=== PATIENT | male | born 1930 | race Caucasian/White ===

== ENCOUNTER 2017-10-08 15:28 | Inpatient (IN) | payer MEDICARE, BC ==
--- NOTE | 2017-10-08 15:40 | ED Physician Chart ---
ED Chief Complaint/HPI - Patient Information Date Seen:: 10/08/17 Time Seen:: 15:25 Chief Complaint:: Facial Erythema History of Present Illness:: onset x 5 weeks of right facial redness and swelling; no report of trauma, pain , S/T, neck pain, H/As, Cough, C/P, SOB, Abd. Pain, A/N/V/D/C, fever, chills, or urinary s/s; pt's last tetanus shot: < 5 years; UTD Historian:: Patient, EMS, Family Member Review:: Nurse's Note Reviewed, EMS run form Reviewed ED Review of Systems - Review of Systems General/Constitutional: Fever, No chills, No weight loss, No weakness, No diaphoresis, No edema, No loss of appetite Skin: Skin lesions, Rash, No bruising Head: No headache, No light-headedness Eyes: No loss of vision, No pain, No diplopia ENT: No earache, No nasal drainage, No sore throat, No tinnitus Neck: No neck pain, No swelling, No thyromegaly, No stiffness, No mass noted Cardio Vascular: No chest pain, No palpitations, No PND, No orthopnea, No edema Pulmonary: No SOB, Cough, No sputum, No wheezing GI: No nausea, No vomiting, No diarrhea, No pain, No melena, No hematochezia, No constipation, No hematemesis G/U: No dysuria, No frequency, No hematuria, No nacturia Musculoskeletal: No bone or joint pain, No back pain, No muscle pain Endocrine: No polyuria, No polydipsia Psychiatric: No prior psych history, No depression, No anxiety, No suicidal ideation, No homicidal ideation, No auditory hallucination, No visual hallucination Hematopoietic: No bruising, No lymphadenopathy Allergic/Immuno: No urticaria, No angioedema Neurological: No syncope, No focal symptoms, No weakness, No paresthesia, No headache, No seizure, No dizziness, No confusion, No vertigo ED Past Medical History - Past Medical History Obtainable: Yes Past Medical History: HTN, DM, Dyslipidemia Family History: Diabetes Melitus, HTN Social History: Non Smoker, No Alcohol, No Drug Use, Surgical History: None Psychiatricy History: None Medication: Reviewed Family Medical History - Family Member Mother History Unknown: Yes ED Physical Exam - Physical Examination General/Constitutional: Awake, Well-developed, well-nourished, Alert, No distress, GCS 15, Non-toxic appearing, Ambulatory Head: Atraumatic Eyes: Lids, conjuctiva normal, PERRL, EOMI Skin: No rash, No skin lesions, No ecchymosis, Well hydrated, No lymphadenopathy Other Skin comments:: + Right Maxillary Facial Cellulitis ENMT: External ears, nose nl, TM canals nl, Nasal exam nl, Lips, teeth, gums nl , Oropharynx nl, Tonsils nl Neck: Nontender, Full ROM w/o pain, No JVD, No nuchal rigidity, No bruit, No mass, No stridor Respiratory: Nl effort/Exclusion, Clear to Auscultation, No Wheeze/Rhonchi/Rales Cardio Vascular: RRR, No murmur, gallop, rubs, NL S1 S2, Carotid/Femoral/Distal pulses equal bilaterally GI: No tenderness/rebounding/guarding, No organomegaly, No hernia, Normal BS's, Nondistended, No mass/bruits, No McBurney tenderness : No CVA tenderness Extremities: No tenderness or effusion, Full ROM, normal strength in all extremities, No edema, Normal digits & nails Neuro/Psych: Alert/oriented, DTR's symmetric, Normal sensory exam, Normal motor strength, Judgement/insight normal, Mood normal, Normal gait, No focal deficits Misc: Normal back, No paraspinal tenderness ED Labs/Radiology/EKG Results - Lab Results Comments:: Na+: 133; LA: 2.62 - Radiology Results Comments:: NAD - EKG Interpretations EKG Time:: 16:17 Rate & Rhythm: 86; NSR Comments:: non=specific st-t changes ED Septic Shock - . Is Septic Shock (SBP<90, OR Lactate>4 mmol\L) present?: No ED Reassessment (Disposition) - Reassessment Reassessment Condition:: Improved - Diagnosis Diagnosis:: Cellulitis; Sepsis; Hyponatremia; Facial Cellulitis - Aftercare/Follow up Instructions Aftercare/Follow-Up Instructions:: Counseled pt regarding lab results/diagnosis & need follow up, Counseled pt & family regarding lab results/diagnosis & need follow up - Patient Disposition Discharge/Transfer:: Acute Care w/in this hosp Accepting Physician:: Dr. Clark Time Called:: 1714 Time Responded:: 17:15 Admitted to:: Med/Surg Spoke to:: Dr. clark Admitting Medical Physician:: Dr. Clark Condition at Disposition:: Stable, Improved
[2017-10-08 16:05] LABS: % BASOPHILS 0.7 % (0.0-2.0); % EOSINOPHILS 5.9 % (0.0-5.0); % LYMPHOCYTES 8.1 % (20.0-50.0); % MONOCYTES 5.3 % (2.0-10.0); BASOPHILE ABSOLUTE 0.1 Th/cumm (0-0.2); EOSINOPHILE ABSOLUTE 0.6 Th/cmm (0.1-0.4); HEMATOCRIT 38.1 % (41.0-60); HEMOGLOBIN 12.2 gm/dL (12-16); LYMPHOCYTE ABSOLUTE 0.9 Th/cmm (1.5-3.0); MEAN CELL VOLUME 74.3 fl (80-99); MEAN CORPUSCULAR HEMOGLOBIN 23.8 pg (27.0-31.0); MEAN CORPUSCULAR HGB CONC 32.1 pg (28.0-36.0); MEAN PLATELET VOLUME 6.5 fl; MONOCYTE ABSOLUTE 0.6 Th/cmm (0.3-1.0); NEUTROPHILE ABSOLUTE 8.7 Th/cmm (1.8-8.0); PLATELET COUNT 386 Th/cmm (150-400); RED BLOOD COUNT 5.13 Mil/cmm (3.80-5.80); RED CELL DISTRIBUTION WIDTH 17.3 % (11.5-20.0); WHITE BLOOD COUNT 10.9 Th/cmm (4.8-10.8)
[2017-10-08 16:22] LABS: ALB/GLOB RATIO 1.2 (1.0-1.8); ALBUMIN 3.7 gm/dL (4.2-5.5); ALKALINE PHOSPHATASE 87 U/L (34-104); ANION GAP 10.4 (7.0-16.0); BILIRUBIN,TOTAL 0.4 mg/dL (0.3-1.0); BUN - UREA NITROGEN 7 mg/dL (7-25); CALCIUM SERUM 9.7 mg/dL (8.6-10.3); CHLORIDE 98 mEq/L (98-107); CREATININE - SERUM 0.7 mg/dL (0.7-1.3); CREATININE KINASE 28 U/L (30-223); GLUCOSE 143 mg/dL (70-105); POTASSIUM SERUM 4.4 mEq/L (3.5-5.1); SGOT 16 U/L (13-39); SGPT/ALT 18 U/L (7-52); SODIUM SERUM 133 mEq/L (136-145); TOTAL PROTEIN,SERUM 6.8 gm/dL (6.0-8.3)
[2017-10-08 16:31] LABS: TROP I < 0.01 ng/mL (0.01-0.05)
[2017-10-08 16:36] LABS: INR 0.91 (0.5-1.4); PROTHROMBIN TIME (TEST) 9.5 SECONDS (9.5-11.5)
[2017-10-08] MEDS ORDERED: Hydrocodone/APAP 5mg/325mg Tab PO PRN (18:20)
[2017-10-08] MEDS ORDERED: Albuterol Nebulizer 2.5mg/3mL HHN PRN (18:20)
[2017-10-08] MEDS ORDERED: Ipratropium Neb 0.5 mg/2.5 mL UD HHN PRN (18:20)
[2017-10-08] MEDS ORDERED: Maalox 30 mL Cup PO PRN (18:20)
[2017-10-08] MEDS ORDERED: guaiFENesin 200 MG/10 ML UDC PO PRN (18:21)
[2017-10-08] MEDS ORDERED: Sodium Chloride 0.9% 1,000 ML IV SCH (18:30)
[2017-10-08 20:19] VITALS: BP 117/61
[2017-10-08] MEDS: INSULIN ASPART, RECOMBINANT 100 UNITS/ML SUBQ SCH (22:05)
[2017-10-08 22:47] LABS: URINE MICROSCOPIC INDICATED? YES; URINE SOURCE CLEAN C
[2017-10-08 23:11] LABS: URINE BILIRUBIN NEGATIVE (NEGATIVE); URINE BLOOD TRACE (NEGATIVE); URINE GLUCOSE (UA) NEGATIVE (NEGATIVE); URINE KETONE NEGATIVE (NEGATIVE); URINE LEUKOCYTE ESTERASE LARGE (NEGATIVE); URINE NITRATE POSITIVE (NEGATIVE); URINE PH 8.5 (4.6 - 8.0); URINE PROTEIN 30 mg/dL (NEGATIVE); URINE UROBILINOGEN 0.2 E.U./dL (0.2 - 1.0)
[2017-10-08 23:12] LABS: URINE CLARITY HAZY (CLEAR); URINE COLOR YELLOW
[2017-10-08 23:18] LABS: URINE RBC 0-2 /hpf (0-5)
[2017-10-08 23:20] LABS: URINE BACTERIA MODERATE /hpf (NONE SEEN); URINE EPITHELIAL CELLS MODERATE /lpf (FEW); URINE WBC 25-50 /hpf (0-5)
[2017-10-09] MEDS: INSULIN ASPART, RECOMBINANT 100 UNITS/ML SUBQ SCH ×4 (07:00→20:56)
--- NOTE | 2017-10-09 08:21 | Diagnostic Imaging Report ---
CHEST X-RAY: AP view INDICATION: pain COMPARISON: None FINDINGS: Suboptimal lung volumes are noted. No focal consolidation or effusions. Heart size is within normal limits. Atherosclerosis is noted. Degenerative changes of the spine and shoulders are noted. IMPRESSION: Suboptimal lung volume with no focal consolidation identified. Atherosclerotic vascular disease.
[2017-10-09] MEDS: Sodium Chloride 0.9% 1,000 ML IV SCH (13:36)
--- NOTE | 2017-10-09 15:25 | Internal Medicine Prog Note ---
Internal Medicine Subjective - Subjective Service Date: 10/09/17 ( [facility] [id number]) Internal Medicine Objective - Results Result Diagrams: 10/08/17 15:50 10/08/17 15:50 Recent Labs: Laboratory Last Values WBC 10.9 Th/cmm (4.8-10.8) H 10/08/17 15:50 RBC 5.13 Mil/cmm (3.80-5.80) 10/08/17 15:50 Hgb 12.2 gm/dL (12-16) 10/08/17 15:50 Hct 38.1 % (41.0-60) L 10/08/17 15:50 MCV 74.3 fl (80-99) L 10/08/17 15:50 MCH 23.8 pg (27.0-31.0) L 10/08/17 15:50 MCHC Differential 32.1 pg (28.0-36.0) 10/08/17 15:50 RDW 17.3 % (11.5-20.0) 10/08/17 15:50 Plt Count 386 Th/cmm (150-400) 10/08/17 15:50 MPV 6.5 fl 10/08/17 15:50 Neutrophils % 80.0 % (40.0-80.0) 10/08/17 15:50 Lymphocytes % 8.1 % (20.0-50.0) L 10/08/17 15:50 Monocytes % 5.3 % (2.0-10.0) 10/08/17 15:50 Eosinophils % 5.9 % (0.0-5.0) H 10/08/17 15:50 Basophils % 0.7 % (0.0-2.0) 10/08/17 15:50 PT 9.5 SECONDS (9.5-11.5) 10/08/17 15:50 INR 0.91 (0.5-1.4) 10/08/17 15:50 PTT (Actin FS) 27.7 SECONDS (26.0-38.0) 10/08/17 15:50 Sodium 133 mEq/L (136-145) L 10/08/17 15:50 Potassium 4.4 mEq/L (3.5-5.1) 10/08/17 15:50 Chloride 98 mEq/L (98-107) 10/08/17 15:50 Carbon Dioxide 29.0 mEq/L (21.0-31.0) 10/08/17 15:50 Anion Gap 10.4 (7.0-16.0) 10/08/17 15:50 BUN 7 mg/dL (7-25) 10/08/17 15:50 Creatinine 0.7 mg/dL (0.7-1.3) 10/08/17 15:50 Est GFR ( Amer) TNP 10/08/17 15:50 Est GFR (Non-Af Amer) TNP 10/08/17 15:50 BUN/Creatinine Ratio 10.0 10/08/17 15:50 Glucose 143 mg/dL (70-105) H 10/08/17 15:50 POC Glucose 183 MG/DL (70 - 105) H 10/09/17 11:20 Whole Bld Lactic Acid 0.98 mmol/L (0.60-1.99) 10/08/17 18:03 Calcium 9.7 mg/dL (8.6-10.3) 10/08/17 15:50 Total Bilirubin 0.4 mg/dL (0.3-1.0) 10/08/17 15:50 AST 16 U/L (13-39) 10/08/17 15:50 ALT 18 U/L (7-52) 10/08/17 15:50 Alkaline Phosphatase 87 U/L (34-104) 10/08/17 15:50 Creatine Kinase 28 U/L (30-223) L 10/08/17 15:50 Troponin I < 0.01 ng/mL (0.01-0.05) L 10/08/17 15:50 Total Protein 6.8 gm/dL (6.0-8.3) 10/08/17 15:50 Albumin 3.7 gm/dL (4.2-5.5) L 10/08/17 15:50 Globulin 3.1 gm/dL 10/08/17 15:50 Albumin/Globulin Ratio 1.2 (1.0-1.8) 10/08/17 15:50 Urine Source CLEAN C 10/08/17 22:20 Urine Color YELLOW 10/08/17 22:20 Urine Clarity HAZY (CLEAR) 10/08/17 22:20 Urine pH 8.5 (4.6 - 8.0) 10/08/17 22:20 Ur Specific [place] 1.015 (1.005-1.030) 10/08/17 22:20 Urine Protein 30 mg/dL (NEGATIVE) H 10/08/17 22:20 Urine Glucose (UA) NEGATIVE mg/dL (NEGATIVE) 10/08/17 22:20 Urine Ketones NEGATIVE mg/dL (NEGATIVE) 10/08/17 22:20 Urine Blood TRACE (NEGATIVE) 10/08/17 22:20 Urine Nitrate POSITIVE (NEGATIVE) H 10/08/17 22:20 Urine Bilirubin NEGATIVE (NEGATIVE) 10/08/17 22:20 Urine Urobilinogen 0.2 E.U./dL (0.2 - 1.0) 10/08/17 22:20 Ur Leukocyte Esterase LARGE (NEGATIVE) H 10/08/17 22:20 Urine RBC 0-2 /hpf (0-5) H 10/08/17 22:20 Urine WBC 25-50 /hpf (0-5) H 10/08/17 22:20 Ur Epithelial Cells MODERATE /lpf (FEW) 10/08/17 22:20 Urine Bacteria MODERATE /hpf (NONE SEEN) H 10/08/17 22:20 - Physical Exam Vitals and I&O: Vital Signs Temp 97.4 F 10/09/17 11:39 Pulse 75 10/09/17 11:39 Resp 18 10/09/17 11:39 BP 116/53 10/09/17 11:39 Pulse Ox 96 10/09/17 11:39 Intake & Output 10/08/17 10/09/17 10/09/17 18:59 06:59 18:59 Intake Total 250 200 100 Balance 250 200 100 Weight (lbs) 139 lb 8 oz Intake: Intake, IV Amount 250 200 100 Piperacillin Sodium/ 200 100 Tazobact 4.5 gm In Sodium Chloride 0.9% 100 ml @ 100 mls/hr IV Q8HR [facility] Rx #:[id number] Vancomycin HCl 1 gm In 250 Sodium Chloride 0.9% 250 ml @ 165 mls/hr IV X1 [facility] Rx#:[id number] Active Medications: Current Medications Acetaminophen (Tylenol) 650 mg PO Q4H PRN PRN Reason: Pain Or Fever above 101 Stop: 12/07/17 18:20 Acetaminophen/Hydrocodone Bitart ([place] 5mg/325mg) 1 tab PO Q4H PRN PRN Reason: Pain (Severe) Stop: 12/07/17 18:19 Al Hydrox/Mg Hydrox/Simethicone (Maalox) 30 ml PO Q6H PRN PRN Reason: Dyspepsia Stop: 12/07/17 18:19 Albuterol Sulfate (Albuterol 2.5mg/3ml Neb Ud) 2.5 mg HHN Q2HRT PRN PRN Reason: Shortness of Breath or Wheeze Stop: 12/07/17 18:19 Atorvastatin Calcium (Lipitor) 40 mg PO DAILY [facility] Stop: 12/08/17 08:59 Last Admin: 10/09/17 09:11 Dose: 40 mg Cyanocobalamin (Vitamin B12) 1,000 mcg PO DAILY [facility] Stop: 12/08/17 08:59 Last Admin: 10/09/17 09:10 Dose: 1,000 mcg Guaifenesin (Robitussin) 200 mg PO Q4HR PRN PRN Reason: Cough or Congestion Stop: 12/07/17 18:20 Heparin Sodium (Porcine) (Heparin) 5,000 units SUBQ Q12HR [facility] Stop: 12/07/17 20:59 Last Admin: 10/09/17 09:10 Dose: 5,000 units Piperacillin Sod/Tazobactam (Sod 4.5 gm/ Sodium Chloride) 100 mls @ 100 mls/hr IV Q8HR [facility] Stop: 12/07/17 20:59 Last Infusion: 10/09/17 14:35 Dose: Infused Sodium Chloride (Nacl 0.9%) 1,000 mls @ 70 mls/hr IV .[id number] [facility] Stop: 12/07/17 18:29 Last Admin: 10/09/17 13:36 Dose: 70 mls/hr Insulin Aspart (Novolog) 0 units SUBQ ACHS [facility] PRN Reason: Protocol Stop: 12/07/17 20:59 Last Admin: 10/09/17 11:44 Dose: Not Given Ipratropium [place] (Atrovent Neb 0.5mg/2.5ml) 0.5 mg HHN Q2HRT PRN PRN Reason: Shortness of Breath or Wheeze Stop: 12/07/17 18:19 Lisinopril (Zestril) 5 mg PO QAM [facility] Stop: 12/08/17 08:59 Last Admin: 10/09/17 09:10 Dose: 5 mg Metformin HCl (Glucophage) 500 mg PO BID [facility] Stop: 12/08/17 08:59 Last Admin: 10/09/17 09:11 Dose: 500 mg Miscellaneous (Vancomycin Iv Per Pharmacy) 1 ea MC PRN [facility] Stop: 12/07/17 18:29 Ondansetron HCl (Zofran) 4 mg IV Q8H PRN PRN Reason: Nausea / Vomiting Stop: 12/07/17 18:20 Pneumococcal Polyvalent Vaccine (Pneumovax) 0.5 ml IM .ONCE ONE Stop: 10/12/17 02:15 Zolpidem Tartrate (Ambien) 10 mg PO HS PRN PRN Reason: Insomnia Stop: 12/07/17 18:19 Internal Medicine Assmt/Plan - Assessment Assessment: FACIAL CELLULITIS ACUTE UTI LEUKOCYTOSIS LACTIC ACIDOSIS DM-2 HYPERCHOLESTEREMIA HTN
[2017-10-09] MEDS: Multivitamin w/ Minerals Tab PO SCH (16:27)
[2017-10-09] MEDS ORDERED: INSULIN HUMAN REGULAR 100 UNITS/ML UNIT SUBQ SCH (16:30)
--- NOTE | 2017-10-10 01:59 | History & Physical ---
ADMIT DATE: 10/09/2017 CHIEF COMPLAINT: Facial swelling x 1 month. HISTORY OF PRESENT ILLNESS: This is an 87-year-old male who is from home, who has been having a 5-week history of facial swelling. The patient stated that at about 3 days ago, he noticed that it started to get worse. He states that he was seeing his primary physician and states that it was bruised. The patient was given oral antibiotics of Keflex and Bactrim DS. Due to the patient's facial redness now going away, the patient is now admitted to the med-surg unit. PAST MEDICAL HISTORY: Hypertension, diabetes, and dyslipidemia. SOCIAL HISTORY: The patient lives at home with his . PAST SURGICAL HISTORY: None per the patient. ALLERGIES: TO LOBSTER AND SHELLFISH. FAMILY HISTORY: Noncontributory. MEDICATIONS: Lisinopril, metformin, Centrum, vitamin B12, and atorvastatin. REVIEW OF SYSTEMS: GENERAL: Denies any fevers, any chills. CARDIOVASCULAR: Denies chest pain. RESPIRATORY: Denies shortness of breath. GASTROINTESTINAL: Denies nausea, vomiting, and abdominal pain. GENITOURINARY: Denies increased frequency or dysuria. NEUROLOGIC: No headaches, seizures, or syncope. All other systems are reviewed and are negative. PHYSICAL EXAMINATION: GENERAL: This is an elderly male, awake, alert, in no apparent distress. VITAL SIGNS: Temperature 97.4, heart rate 75, blood pressure 160/53, respirations 18, and O2 of 96%. HEENT: Head; normocephalic and atraumatic. NECK: Supple. No mass. LUNGS: Clear bilaterally. HEART: ____ rhythm. ABDOMEN: Soft and nontender. SKIN: Left facial area is noted with redness. The patient also has few redness on the buttocks area. LABORATORY DATA: WBC 10.9, H and H 12.2 and ____, and platelet of 386. Sodium 132, potassium 4.4, chloride 98, BUN 7, creatinine 0.7. Whole lactic acid of 2.62. Troponin of 0.01. Urinalysis, the patient had a urinalysis done, positive for UTI. The patient had a chest x-ray done, impression is suboptimal lung volume with no focal consolidation identified, atherosclerotic vascular disease. ASSESSMENT: Facial cellulitis, hypertension, type 2 diabetes, hypercholesterolemia, lactic acidosis, hyponatremia, leukocytosis, and acute urinary tract infection. PLAN: The patient to be admitted to the med-surg unit. We will keep the patient on empiric IV antibiotics of Zosyn and vancomycin as well per pharmacy to dose. Monitor the patient's electrolyte levels. We will give IV fluids for hydration. We will do Accu-Chek a.c. and at bedtime. We will continue to monitor this patient. JOB# [id number]
[2017-10-10 05:24] LABS: % BASOPHILS 0.1 % (0.0-2.0); % EOSINOPHILS 10.2 % (0.0-5.0); % LYMPHOCYTES 13.6 % (20.0-50.0); % NEUTROPHILS 69.1 % (40.0-80.0); EOSINOPHILE ABSOLUTE 0.8 Th/cmm (0.1-0.4); HEMOGLOBIN 10.3 gm/dL (12-16); MEAN CELL VOLUME 73.5 fl (80-99); MEAN CORPUSCULAR HEMOGLOBIN 24.6 pg (27.0-31.0); MEAN CORPUSCULAR HGB CONC 33.5 pg (28.0-36.0); MEAN PLATELET VOLUME 6.5 fl; MONOCYTE ABSOLUTE 0.5 Th/cmm (0.3-1.0); NEUTROPHILE ABSOLUTE 5.3 Th/cmm (1.8-8.0); RED BLOOD COUNT 4.19 Mil/cmm (3.80-5.80); RED CELL DISTRIBUTION WIDTH 17.6 % (11.5-20.0)
[2017-10-10 05:27] LABS: HEMATOCRIT 30.8 % (41.0-60); PLATELET COUNT 286 Th/cmm (150-400); WHITE BLOOD COUNT 7.6 Th/cmm (4.8-10.8)
[2017-10-10 05:49] LABS: ANION GAP 9.3 (7.0-16.0); BUN - UREA NITROGEN 9 mg/dL (7-25); CALCIUM SERUM 8.6 mg/dL (8.6-10.3); CARBON DIOXIDE 26.4 mEq/L (21.0-31.0); CHLORIDE 102 mEq/L (98-107); CREATININE - SERUM 0.7 mg/dL (0.7-1.3); GLUCOSE 122 mg/dL (70-105); POTASSIUM SERUM 3.7 mEq/L (3.5-5.1); SODIUM SERUM 134 mEq/L (136-145)
[2017-10-10] MEDS: Sodium Chloride 0.9% 1,000 ML IV SCH (06:43)
[2017-10-10] MEDS: INSULIN ASPART, RECOMBINANT 100 UNITS/ML SUBQ SCH ×4 (06:47→21:06)
[2017-10-10] MEDS: Multivitamin w/ Minerals Tab PO SCH (08:49)
--- NOTE | 2017-10-10 12:35 | Diagnostic Imaging Report ---
Exam: CT examination of facial bones The history facial cellulitis. Total DLP equals 378 CTDI equals 17.4. Findings: Multiple contiguous thin section of the facial bones obtained in axial plane with coronal sagittal reconstruction technique. The study performed without contrast material the study therefore is somewhat limited. The study demonstrates normal appearance of maxilla and mandible. There is no evidence of fracture dislocation. Extensive the dental hardware hardware is noted. There is evidence for opacification of the right maxillary sinus with homogeneous mass extending in anterior portion of the right maxilla sinus with destruction of the bony wall. The mass mass measures 4.4 cm in transverse diameter. There is extension of the mass via superior portion of right maxillary sinus wall into the right inferior orbit Clinical correlation and biopsies recommended. There is evidence for destruction of the posterior lateral wall of the right maxillary sinus. The left maxillary sinus is intact. The visualized sphenoid sinuses and ethmoid sinuses are intact. The optic globes are normal. Right infraorbital soft tissue swelling is noted extending into the right paranasal area. There is evidence for destruction of the right nasal bone IMPRESSION : Destructive changes with erosion of the right the anterior maxillary wall right posterior lateral Large mass extending in the right infraorbital area most likely from the destructive lesion of the right maxillary sinus measuring 4.4 cm diameter. Neoplastic component cannot be excluded. Extension of the previously described mass into the right inferior orbit near proximity to the inferior rectus muscle.
--- NOTE | 2017-10-10 15:08 | Internal Medicine Prog Note ---
Internal Medicine Subjective - Subjective Service Date: 10/10/17 Patient seen and examined:: with staff Patient is:: awake, verbal Per staff patient has:: tolerating meds Internal Medicine Objective - Results Result Diagrams: 10/10/17 05:10 10/10/17 05:10 Recent Labs: Laboratory Last Values WBC 7.6 Th/cmm (4.8-10.8) D 10/10/17 05:10 RBC 4.19 Mil/cmm (3.80-5.80) 10/10/17 05:10 Hgb 10.3 gm/dL (12-16) L 10/10/17 05:10 Hct 30.8 % (41.0-60) L D 10/10/17 05:10 MCV 73.5 fl (80-99) L 10/10/17 05:10 MCH 24.6 pg (27.0-31.0) L 10/10/17 05:10 MCHC Differential 33.5 pg (28.0-36.0) 10/10/17 05:10 RDW 17.6 % (11.5-20.0) 10/10/17 05:10 Plt Count 286 Th/cmm (150-400) D 10/10/17 05:10 MPV 6.5 fl 10/10/17 05:10 Neutrophils % 69.1 % (40.0-80.0) 10/10/17 05:10 Lymphocytes % 13.6 % (20.0-50.0) L 10/10/17 05:10 Monocytes % 7.0 % (2.0-10.0) 10/10/17 05:10 Eosinophils % 10.2 % (0.0-5.0) H 10/10/17 05:10 Basophils % 0.1 % (0.0-2.0) 10/10/17 05:10 ESR 82 mm/hr (0-20) H 10/10/17 05:10 PT 9.5 SECONDS (9.5-11.5) 10/08/17 15:50 INR 0.91 (0.5-1.4) 10/08/17 15:50 PTT (Actin FS) 27.7 SECONDS (26.0-38.0) 10/08/17 15:50 Sodium 134 mEq/L (136-145) L 10/10/17 05:10 Potassium 3.7 mEq/L (3.5-5.1) 10/10/17 05:10 Chloride 102 mEq/L (98-107) 10/10/17 05:10 Carbon Dioxide 26.4 mEq/L (21.0-31.0) 10/10/17 05:10 Anion Gap 9.3 (7.0-16.0) 10/10/17 05:10 BUN 9 mg/dL (7-25) 10/10/17 05:10 Creatinine 0.7 mg/dL (0.7-1.3) 10/10/17 05:10 Est GFR ( Amer) TNP 10/10/17 05:10 Est GFR (Non-Af Amer) TNP 10/10/17 05:10 BUN/Creatinine Ratio 12.9 10/10/17 05:10 Glucose 122 mg/dL (70-105) H 10/10/17 05:10 POC Glucose 167 MG/DL (70 - 105) H 10/10/17 12:02 Whole Bld Lactic Acid 0.98 mmol/L (0.60-1.99) 10/08/17 18:03 Calcium 8.6 mg/dL (8.6-10.3) 10/10/17 05:10 Total Bilirubin 0.4 mg/dL (0.3-1.0) 10/08/17 15:50 AST 16 U/L (13-39) 10/08/17 15:50 ALT 18 U/L (7-52) 10/08/17 15:50 Alkaline Phosphatase 87 U/L (34-104) 10/08/17 15:50 Creatine Kinase 28 U/L (30-223) L 10/08/17 15:50 Troponin I < 0.01 ng/mL (0.01-0.05) L 10/08/17 15:50 B-Natriuretic Peptide 63.7 pg/mL (5.0-100.0) 10/10/17 05:10 Total Protein 6.8 gm/dL (6.0-8.3) 10/08/17 15:50 Albumin 3.7 gm/dL (4.2-5.5) L 10/08/17 15:50 Globulin 3.1 gm/dL 10/08/17 15:50 Albumin/Globulin Ratio 1.2 (1.0-1.8) 10/08/17 15:50 Urine Source CLEAN C 10/08/17 22:20 Urine Color YELLOW 10/08/17 22:20 Urine Clarity HAZY (CLEAR) 10/08/17 22:20 Urine pH 8.5 (4.6 - 8.0) 10/08/17 22:20 Ur Specific [place] 1.015 (1.005-1.030) 10/08/17 22:20 Urine Protein 30 mg/dL (NEGATIVE) H 10/08/17 22:20 Urine Glucose (UA) NEGATIVE mg/dL (NEGATIVE) 10/08/17 22:20 Urine Ketones NEGATIVE mg/dL (NEGATIVE) 10/08/17 22:20 Urine Blood TRACE (NEGATIVE) 10/08/17 22:20 Urine Nitrate POSITIVE (NEGATIVE) H 10/08/17 22:20 Urine Bilirubin NEGATIVE (NEGATIVE) 10/08/17 22:20 Urine Urobilinogen 0.2 E.U./dL (0.2 - 1.0) 10/08/17 22:20 Ur Leukocyte Esterase LARGE (NEGATIVE) H 10/08/17 22:20 Urine RBC 0-2 /hpf (0-5) H 10/08/17 22:20 Urine WBC 25-50 /hpf (0-5) H 10/08/17 22:20 Ur Epithelial Cells MODERATE /lpf (FEW) 10/08/17 22:20 Urine Bacteria MODERATE /hpf (NONE SEEN) H 10/08/17 22:20 - Physical Exam Vitals and I&O: Vital Signs Temp 98.4 F 10/10/17 08:00 Pulse 79 10/10/17 13:42 Resp 18 10/10/17 13:42 BP 125/63 10/10/17 08:49 Pulse Ox 96 10/10/17 13:42 Intake & Output 10/09/17 10/10/17 10/10/17 18:59 06:59 18:59 Intake Total 100 1400 Output Total 1200 Balance 100 200 Weight (lbs) 137 lb Intake: Intake, IV Amount 100 1200 Piperacillin Sodium/ 100 200 Tazobact 4.5 gm In Sodium Chloride 0.9% 100 ml @ 100 mls/hr IV Q8HR [facility] Rx #:[id number] Sodium Chloride 0.9% 1, 1000 000 ml @ 70 mls/hr IV . [id number] [facility] Rx#:[id number] Oral 200 Output: Urine 1200 Active Medications: Current Medications Acetaminophen (Tylenol) 650 mg PO Q4H PRN PRN Reason: Pain Or Fever above 101 Stop: 12/07/17 18:20 Acetaminophen/Hydrocodone Bitart ([place] 5mg/325mg) 1 tab PO Q4H PRN PRN Reason: Pain (Severe) Stop: 12/07/17 18:19 Al Hydrox/Mg Hydrox/Simethicone (Maalox) 30 ml PO Q6H PRN PRN Reason: Dyspepsia Stop: 12/07/17 18:19 Albuterol Sulfate (Albuterol 2.5mg/3ml Neb Ud) 2.5 mg HHN Q2HRT PRN PRN Reason: Shortness of Breath or Wheeze Stop: 12/07/17 18:19 Atorvastatin Calcium (Lipitor) 40 mg PO DAILY [facility] Stop: 12/08/17 08:59 Last Admin: 10/10/17 08:49 Dose: 40 mg Cyanocobalamin (Vitamin B12) 1,000 mcg PO DAILY [facility] Stop: 12/08/17 08:59 Last Admin: 10/10/17 08:49 Dose: 1,000 mcg Guaifenesin (Robitussin) 200 mg PO Q4HR PRN PRN Reason: Cough or Congestion Stop: 12/07/17 18:20 Heparin Sodium (Porcine) (Heparin) 5,000 units SUBQ Q12HR [facility] Stop: 12/07/17 20:59 Last Admin: 10/10/17 08:58 Dose: Not Given Piperacillin Sod/Tazobactam (Sod 4.5 gm/ Sodium Chloride) 100 mls @ 100 mls/hr IV Q8HR [facility] Stop: 12/07/17 20:59 Last Admin: 10/10/17 12:56 Dose: 100 mls/hr Sodium Chloride (Nacl 0.9%) 1,000 mls @ 70 mls/hr IV .[id number] [facility] Stop: 12/07/17 18:29 Last Admin: 10/10/17 06:43 Dose: 70 mls/hr Vancomycin HCl 1 gm/ Dextrose 250 mls @ 165 mls/hr IV Q24HR@0900 [facility] Stop: 12/08/17 15:59 Last Admin: 10/10/17 08:50 Dose: Not Given Vancomycin HCl 1 gm/ Dextrose 250 mls @ 165 mls/hr IV Q24HR@1600 [facility] Stop: 12/09/17 08:59 Insulin Aspart (Novolog) 0 units SUBQ ACHS [facility] PRN Reason: Protocol Stop: 12/07/17 20:59 Last Admin: 10/10/17 12:03 Dose: Not Given Ipratropium [place] (Atrovent Neb 0.5mg/2.5ml) 0.5 mg HHN Q2HRT PRN PRN Reason: Shortness of Breath or Wheeze Stop: 12/07/17 18:19 Lisinopril (Zestril) 5 mg PO QAM [facility] Stop: 12/08/17 08:59 Last Admin: 10/10/17 08:49 Dose: 5 mg Metformin HCl (Glucophage) 500 mg PO BID [facility] Stop: 12/08/17 08:59 Last Admin: 10/10/17 08:49 Dose: 500 mg Miscellaneous (Vancomycin Iv Per Pharmacy) 1 ea MC PRN [facility] Stop: 12/07/17 18:29 Mupirocin (Bactroban Oint) 1 appl NS BID [facility] Stop: 10/15/17 09:01 Ondansetron HCl (Zofran) 4 mg IV Q8H PRN PRN Reason: Nausea / Vomiting Stop: 12/07/17 18:20 Pneumococcal Polyvalent Vaccine (Pneumovax) 0.5 ml IM .ONCE ONE Stop: 10/12/17 02:15 Zolpidem Tartrate (Ambien) 10 mg PO HS PRN PRN Reason: Insomnia Stop: 12/07/17 18:19 General: alert HEENT: NC/AT, PERRLA Neck: Supple Lungs: CTAB Cardiovascular: RRR, Normal S1, Normal S2 Abdomen: soft, non-tender Extremities: excoriation Internal Medicine Assmt/Plan - Assessment Assessment: FACIAL CELLULITIS large mass right infraorbital area ACUTE UTI LEUKOCYTOSIS LACTIC ACIDOSIS DM-2 HYPERCHOLESTEREMIA HTN - Plan Plan: sample case porter to arrange placement to [facility] for ENT continue ivabx follow up labs in am continue current plan of care
[2017-10-11 06:34] LABS: % BASOPHILS 0.9 % (0.0-2.0); % EOSINOPHILS 7.1 % (0.0-5.0); % LYMPHOCYTES 9.9 % (20.0-50.0); % MONOCYTES 7.6 % (2.0-10.0); % NEUTROPHILS 74.5 % (40.0-80.0); BASOPHILE ABSOLUTE 0.1 Th/cumm (0-0.2); EOSINOPHILE ABSOLUTE 0.6 Th/cmm (0.1-0.4); HEMATOCRIT 32.2 % (41.0-60); HEMOGLOBIN 10.6 gm/dL (12-16); LYMPHOCYTE ABSOLUTE 0.8 Th/cmm (1.5-3.0); MEAN CELL VOLUME 74.1 fl (80-99); MEAN CORPUSCULAR HEMOGLOBIN 24.5 pg (27.0-31.0); MEAN CORPUSCULAR HGB CONC 33.1 pg (28.0-36.0); MEAN PLATELET VOLUME 6.3 fl; MONOCYTE ABSOLUTE 0.6 Th/cmm (0.3-1.0); NEUTROPHILE ABSOLUTE 6.2 Th/cmm (1.8-8.0); PLATELET COUNT 301 Th/cmm (150-400); RED BLOOD COUNT 4.35 Mil/cmm (3.80-5.80); RED CELL DISTRIBUTION WIDTH 17.8 % (11.5-20.0); WHITE BLOOD COUNT 8.3 Th/cmm (4.8-10.8)
[2017-10-11] MEDS: INSULIN ASPART, RECOMBINANT 100 UNITS/ML SUBQ SCH ×3 (06:37→17:34)
[2017-10-11 06:51] LABS: ANION GAP 12.1 (7.0-16.0); BUN - UREA NITROGEN 7 mg/dL (7-25); CALCIUM SERUM 8.8 mg/dL (8.6-10.3); CARBON DIOXIDE 23.6 mEq/L (21.0-31.0); CHLORIDE 105 mEq/L (98-107); CREATININE - SERUM 0.6 mg/dL (0.7-1.3); GLUCOSE 128 mg/dL (70-105); POTASSIUM SERUM 3.7 mEq/L (3.5-5.1); SODIUM SERUM 137 mEq/L (136-145)
[2017-10-11] MEDS: Multivitamin w/ Minerals Tab PO SCH (08:40)
[2017-10-11] MEDS ORDERED: Probiotic Screen MC PRN (12:15)
--- NOTE | 2017-10-11 13:02 | Internal Medicine Prog Note ---
Internal Medicine Subjective - Subjective Service Date: 10/11/17 Patient seen and examined:: with staff Patient is:: awake, verbal Per staff patient has:: tolerating meds Internal Medicine Objective - Results Result Diagrams: 10/11/17 06:03 10/11/17 06:03 Recent Labs: Laboratory Last Values WBC 8.3 Th/cmm (4.8-10.8) 10/11/17 06:03 RBC 4.35 Mil/cmm (3.80-5.80) 10/11/17 06:03 Hgb 10.6 gm/dL (12-16) L 10/11/17 06:03 Hct 32.2 % (41.0-60) L 10/11/17 06:03 MCV 74.1 fl (80-99) L 10/11/17 06:03 MCH 24.5 pg (27.0-31.0) L 10/11/17 06:03 MCHC Differential 33.1 pg (28.0-36.0) 10/11/17 06:03 RDW 17.8 % (11.5-20.0) 10/11/17 06:03 Plt Count 301 Th/cmm (150-400) 10/11/17 06:03 MPV 6.3 fl 10/11/17 06:03 Neutrophils % 74.5 % (40.0-80.0) 10/11/17 06:03 Lymphocytes % 9.9 % (20.0-50.0) L 10/11/17 06:03 Monocytes % 7.6 % (2.0-10.0) 10/11/17 06:03 Eosinophils % 7.1 % (0.0-5.0) H 10/11/17 06:03 Basophils % 0.9 % (0.0-2.0) 10/11/17 06:03 ESR 82 mm/hr (0-20) H 10/10/17 05:10 PT 9.5 SECONDS (9.5-11.5) 10/08/17 15:50 INR 0.91 (0.5-1.4) 10/08/17 15:50 PTT (Actin FS) 27.7 SECONDS (26.0-38.0) 10/08/17 15:50 Sodium 137 mEq/L (136-145) 10/11/17 06:03 Potassium 3.7 mEq/L (3.5-5.1) 10/11/17 06:03 Chloride 105 mEq/L (98-107) 10/11/17 06:03 Carbon Dioxide 23.6 mEq/L (21.0-31.0) 10/11/17 06:03 Anion Gap 12.1 (7.0-16.0) 10/11/17 06:03 BUN 7 mg/dL (7-25) 10/11/17 06:03 Creatinine 0.6 mg/dL (0.7-1.3) L 10/11/17 06:03 Est GFR ( Amer) TNP 10/11/17 06:03 Est GFR (Non-Af Amer) TNP 10/11/17 06:03 BUN/Creatinine Ratio 11.7 10/11/17 06:03 Glucose 128 mg/dL (70-105) H 10/11/17 06:03 POC Glucose 121 MG/DL (70 - 105) H 10/11/17 06:35 Whole Bld Lactic Acid 0.98 mmol/L (0.60-1.99) 10/08/17 18:03 Calcium 8.8 mg/dL (8.6-10.3) 10/11/17 06:03 Total Bilirubin 0.4 mg/dL (0.3-1.0) 10/08/17 15:50 AST 16 U/L (13-39) 10/08/17 15:50 ALT 18 U/L (7-52) 10/08/17 15:50 Alkaline Phosphatase 87 U/L (34-104) 10/08/17 15:50 Creatine Kinase 28 U/L (30-223) L 10/08/17 15:50 Troponin I < 0.01 ng/mL (0.01-0.05) L 10/08/17 15:50 B-Natriuretic Peptide 63.7 pg/mL (5.0-100.0) 10/10/17 05:10 Total Protein 6.8 gm/dL (6.0-8.3) 10/08/17 15:50 Albumin 3.7 gm/dL (4.2-5.5) L 10/08/17 15:50 Globulin 3.1 gm/dL 10/08/17 15:50 Albumin/Globulin Ratio 1.2 (1.0-1.8) 10/08/17 15:50 Urine Source CLEAN C 10/08/17 22:20 Urine Color YELLOW 10/08/17 22:20 Urine Clarity HAZY (CLEAR) 10/08/17 22:20 Urine pH 8.5 (4.6 - 8.0) 10/08/17 22:20 Ur Specific [place] 1.015 (1.005-1.030) 10/08/17 22:20 Urine Protein 30 mg/dL (NEGATIVE) H 10/08/17 22:20 Urine Glucose (UA) NEGATIVE mg/dL (NEGATIVE) 10/08/17 22:20 Urine Ketones NEGATIVE mg/dL (NEGATIVE) 10/08/17 22:20 Urine Blood TRACE (NEGATIVE) 10/08/17 22:20 Urine Nitrate POSITIVE (NEGATIVE) H 10/08/17 22:20 Urine Bilirubin NEGATIVE (NEGATIVE) 10/08/17 22:20 Urine Urobilinogen 0.2 E.U./dL (0.2 - 1.0) 10/08/17 22:20 Ur Leukocyte Esterase LARGE (NEGATIVE) H 10/08/17 22:20 Urine RBC 0-2 /hpf (0-5) H 10/08/17 22:20 Urine WBC 25-50 /hpf (0-5) H 10/08/17 22:20 Ur Epithelial Cells MODERATE /lpf (FEW) 10/08/17 22:20 Urine Bacteria MODERATE /hpf (NONE SEEN) H 10/08/17 22:20 - Physical Exam Vitals and I&O: Vital Signs Temp 97.4 F 10/11/17 11:33 Pulse 73 10/11/17 11:33 Resp 17 10/11/17 11:33 BP 134/65 10/11/17 11:33 Pulse Ox 94 10/11/17 11:33 Intake & Output 10/10/17 10/11/17 10/11/17 18:59 06:59 18:59 Intake Total 350 300 Output Total 900 Balance 350 -600 Weight (lbs) 137 lb 137 lb Intake: Intake, IV Amount 350 200 Piperacillin Sodium/ 100 200 Tazobact 4.5 gm In Sodium Chloride 0.9% 100 ml @ 100 mls/hr IV Q8HR [facility] Rx #:[id number] Vancomycin HCl 1 gm In 250 Dextrose 5% 250 ml @ 165 mls/hr IV Q24HR@1600 [facility] Rx#:[id number] Oral 100 Output: Urine 900 Other: # Voids 1,000 Active Medications: Current Medications Acetaminophen (Tylenol) 650 mg PO Q4H PRN PRN Reason: Pain Or Fever above 101 Stop: 12/07/17 18:20 Acetaminophen/Hydrocodone Bitart ([place] 5mg/325mg) 1 tab PO Q4H PRN PRN Reason: Pain (Severe) Stop: 12/07/17 18:19 Al Hydrox/Mg Hydrox/Simethicone (Maalox) 30 ml PO Q6H PRN PRN Reason: Dyspepsia Stop: 12/07/17 18:19 Albuterol Sulfate (Albuterol 2.5mg/3ml Neb Ud) 2.5 mg HHN Q2HRT PRN PRN Reason: Shortness of Breath or Wheeze Stop: 12/07/17 18:19 Atorvastatin Calcium (Lipitor) 40 mg PO DAILY [facility] Stop: 12/08/17 08:59 Last Admin: 10/11/17 08:39 Dose: 40 mg Cyanocobalamin (Vitamin B12) 1,000 mcg PO DAILY [facility] Stop: 12/08/17 08:59 Last Admin: 10/11/17 08:39 Dose: 1,000 mcg Guaifenesin (Robitussin) 200 mg PO Q4HR PRN PRN Reason: Cough or Congestion Stop: 12/07/17 18:20 Heparin Sodium (Porcine) (Heparin) 5,000 units SUBQ Q12HR [facility] Stop: 12/07/17 20:59 Last Admin: 10/11/17 08:41 Dose: Not Given Piperacillin Sod/Tazobactam (Sod 4.5 gm/ Sodium Chloride) 100 mls @ 100 mls/hr IV Q8HR [facility] Stop: 12/07/17 20:59 Last Admin: 10/11/17 12:09 Dose: 100 mls/hr Sodium Chloride (Nacl 0.9%) 1,000 mls @ 70 mls/hr IV .[id number] [facility] Stop: 12/07/17 18:29 Last Admin: 10/10/17 06:43 Dose: 70 mls/hr Vancomycin HCl 1 gm/ Dextrose 250 mls @ 165 mls/hr IV Q24HR@1600 [facility] Stop: 12/09/17 08:59 Last Infusion: 10/10/17 17:30 Dose: Infused Insulin Aspart (Novolog) 0 units SUBQ ACHS [facility] PRN Reason: Protocol Stop: 12/07/17 20:59 Last Admin: 10/11/17 12:11 Dose: Not Given Ipratropium [place] (Atrovent Neb 0.5mg/2.5ml) 0.5 mg HHN Q2HRT PRN PRN Reason: Shortness of Breath or Wheeze Stop: 12/07/17 18:19 Lactobacillus Rhamnosus (Culturelle 15b) 1 each PO DAILY [facility] Stop: 12/11/17 08:59 Lisinopril (Zestril) 5 mg PO QAM [facility] Stop: 12/08/17 08:59 Last Admin: 10/11/17 08:41 Dose: 5 mg Metformin HCl (Glucophage) 500 mg PO BID [facility] Stop: 12/08/17 08:59 Last Admin: 10/11/17 08:40 Dose: 500 mg Miscellaneous (Vancomycin Iv Per Pharmacy) 1 ea MC PRN [facility] Stop: 12/07/17 18:29 Miscellaneous (Probiotic Screen) 1 ea PRN PRN PRN Reason: PROTOCOL Stop: 12/10/17 12:14 Mupirocin (Bactroban Oint) 1 appl NS BID [facility] Stop: 10/15/17 09:01 Last Admin: 10/11/17 08:42 Dose: 1 appl Ondansetron HCl (Zofran) 4 mg IV Q8H PRN PRN Reason: Nausea / Vomiting Stop: 12/07/17 18:20 Pneumococcal Polyvalent Vaccine (Pneumovax) 0.5 ml IM .ONCE ONE Stop: 10/12/17 02:15 Zolpidem Tartrate (Ambien) 10 mg PO HS PRN PRN Reason: Insomnia Stop: 12/07/17 18:19 General: alert HEENT: NC/AT, PERRLA Neck: Supple Lungs: CTAB Cardiovascular: RRR, Normal S1, Normal S2 Abdomen: soft, non-tender Extremities: excoriation Internal Medicine Assmt/Plan - Assessment Assessment: FACIAL CELLULITIS large mass right infraorbital area ACUTE UTI LEUKOCYTOSIS LACTIC ACIDOSIS DM-2 HYPERCHOLESTEREMIA HTN - Plan Plan: awaiting for bed at [facility] for ENT continue ivabx follow up labs in am continue current plan of care
[2017-10-11] MEDS ORDERED: Vancomycin HCl 1.5 GM in Sodium Chloride 0.9% 500 ML IV SCH (16:00)
[2017-10-11] MEDS: Sodium Chloride 0.9% 1,000 ML IV SCH (21:21)
[2017-10-12] MEDS ORDERED: Pneumococcal Vaccine 0.5 mL Vial IM ONE (02:14)
[2017-10-12 05:08] LABS: % BASOPHILS 0.6 % (0.0-2.0); % EOSINOPHILS 8.5 % (0.0-5.0); % LYMPHOCYTES 10.1 % (20.0-50.0); % MONOCYTES 7.4 % (2.0-10.0); % NEUTROPHILS 73.4 % (40.0-80.0); EOSINOPHILE ABSOLUTE 0.7 Th/cmm (0.1-0.4); HEMATOCRIT 30.9 % (41.0-60); HEMOGLOBIN 10.3 gm/dL (12-16); LYMPHOCYTE ABSOLUTE 0.8 Th/cmm (1.5-3.0); MEAN CELL VOLUME 74.4 fl (80-99); MEAN CORPUSCULAR HEMOGLOBIN 24.7 pg (27.0-31.0); MEAN CORPUSCULAR HGB CONC 33.2 pg (28.0-36.0); MEAN PLATELET VOLUME 6.2 fl; MONOCYTE ABSOLUTE 0.6 Th/cmm (0.3-1.0); NEUTROPHILE ABSOLUTE 5.7 Th/cmm (1.8-8.0); PLATELET COUNT 300 Th/cmm (150-400); RED BLOOD COUNT 4.15 Mil/cmm (3.80-5.80); RED CELL DISTRIBUTION WIDTH 17.8 % (11.5-20.0); WHITE BLOOD COUNT 7.8 Th/cmm (4.8-10.8)
[2017-10-12 05:32] LABS: INR 1.09 (0.5-1.4); PROTHROMBIN TIME (TEST) 11.4 SECONDS (9.5-11.5)
[2017-10-12 05:35] LABS: ALB/GLOB RATIO 1.2 (1.0-1.8); ALKALINE PHOSPHATASE 49 U/L (34-104); ANION GAP 9.3 (7.0-16.0); BILIRUBIN,DIRECT 0.11 mg/dL (0.0-0.2); BILIRUBIN,TOTAL 0.5 mg/dL (0.3-1.0); BUN - UREA NITROGEN 6 mg/dL (7-25); CALCIUM SERUM 8.7 mg/dL (8.6-10.3); CARBON DIOXIDE 26.3 mEq/L (21.0-31.0); CHLORIDE 104 mEq/L (98-107); GLUCOSE 135 mg/dL (70-105); POTASSIUM SERUM 3.6 mEq/L (3.5-5.1); SGOT 13 U/L (13-39); SGPT/ALT 13 U/L (7-52); SODIUM SERUM 136 mEq/L (136-145); TOTAL PROTEIN,SERUM 5.5 gm/dL (6.0-8.3)
[2017-10-12] MEDS: INSULIN ASPART, RECOMBINANT 100 UNITS/ML SUBQ SCH ×2 (05:45→17:25)
[2017-10-12] MEDS: Multivitamin w/ Minerals Tab PO SCH (09:54)
[2017-10-12] MEDS: Lactobacillus Rhamnosus GG 15 Billion CFU CAP.SPRINK PO SCH (09:54)
--- NOTE | 2017-10-12 09:56 | Consultation ---
DATE OF CONSULTATION: 10/11/2017 HEMATOLOGY ONCOLOGY CONSULTATION REFERRING PHYSICIAN: Dr. Clark. REASON FOR CONSULTATION: Maxillary tumor. HISTORY OF PRESENT ILLNESS: The patient is an 87-year-old male who came from home because of pain and swelling in the right base. He stated that this has been going on for the past 3 months. He denied bleeding from the nose or visual problems. A CT scan of the face and orbit was done, which showed opacification of the right maxillary sinus with destruction of the wall of the maxillary sinus. PAST MEDICAL HISTORY: Hypertension, diabetes, dyslipidemia, history of Guillain Mantoloking, and weakness of both lower extremities. PAST SURGICAL HISTORY: None. SOCIAL HISTORY: Lives with his . MEDICATIONS: Reviewed. REVIEW OF SYSTEMS: Weakness in both lower extremities, rigidity and contracture of the left upper extremity for the past 1 year. PHYSICAL EXAMINATION: GENERAL: The patient is awake, not in distress, talking. VITAL SIGNS: Stable. HEENT: There is asymmetry of the face with prominence of the right maxillary area with a palpable mass in this area that is pushing and displacing the right orbit. Extraocular muscles are intact. No oral lesions. NECK: No lymphadenopathy. CHEST: Good air entry. ABDOMEN: Soft. Condom cath, the urine is clear. EXTREMITIES: Atrophic and rigidity in both lower extremities and left upper extremity. NERVOUS SYSTEM: Weakness of both lower extremities and left upper extremity. LABORATORY DATA: White count 8.3, hemoglobin 10.6, platelets 301, and MCV 74.1. Chemistry: Creatinine 0.6. No liver functions available. 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 The CT scan was reviewed on monitor, which revealed complete opacification of the right maxilla with tumor destroying the anterior wall of the right maxilla and also penetrating the lower wall of the right orbit causing displacement of the right orbit. The left maxilla is unremarkable, this could be either lymphoma or head and neck cancer. 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 I will obtain liver functions and coagulation panel to complement the workup. Also, iron studies to evaluate for the microcytic anemia. Further management will be addressed based on pathology results. Thank you Dr. Clark for the opportunity to participate in the care of this interesting case for you. JOB# [id number]
[2017-10-12] MEDS ORDERED: Vancomycin HCl 1.5 GM in Sodium Chloride 0.9% 500 ML IV SCH (12:00)
[2017-10-12] MEDS: Sodium Chloride 0.9% 1,000 ML IV SCH (13:17)
--- NOTE | 2017-10-12 14:33 | Internal Medicine Prog Note ---
Internal Medicine Subjective - Subjective Service Date: 10/12/17 Patient seen and examined:: with staff Patient is:: awake, verbal Per staff patient has:: tolerating meds Internal Medicine Objective - Results Result Diagrams: 10/12/17 05:00 10/12/17 05:00 Recent Labs: Laboratory Last Values WBC 7.8 Th/cmm (4.8-10.8) 10/12/17 05:00 RBC 4.15 Mil/cmm (3.80-5.80) 10/12/17 05:00 Hgb 10.3 gm/dL (12-16) L 10/12/17 05:00 Hct 30.9 % (41.0-60) L 10/12/17 05:00 MCV 74.4 fl (80-99) L 10/12/17 05:00 MCH 24.7 pg (27.0-31.0) L 10/12/17 05:00 MCHC Differential 33.2 pg (28.0-36.0) 10/12/17 05:00 RDW 17.8 % (11.5-20.0) 10/12/17 05:00 Plt Count 300 Th/cmm (150-400) 10/12/17 05:00 MPV 6.2 fl 10/12/17 05:00 Neutrophils % 73.4 % (40.0-80.0) 10/12/17 05:00 Lymphocytes % 10.1 % (20.0-50.0) L 10/12/17 05:00 Monocytes % 7.4 % (2.0-10.0) 10/12/17 05:00 Eosinophils % 8.5 % (0.0-5.0) H 10/12/17 05:00 Basophils % 0.6 % (0.0-2.0) 10/12/17 05:00 ESR 82 mm/hr (0-20) H 10/10/17 05:10 PT 11.4 SECONDS (9.5-11.5) 10/12/17 05:00 INR 1.09 (0.5-1.4) 10/12/17 05:00 PTT (Actin FS) 27.0 SECONDS (26.0-38.0) 10/12/17 05:00 Sodium 136 mEq/L (136-145) 10/12/17 05:00 Potassium 3.6 mEq/L (3.5-5.1) 10/12/17 05:00 Chloride 104 mEq/L (98-107) 10/12/17 05:00 Carbon Dioxide 26.3 mEq/L (21.0-31.0) 10/12/17 05:00 Anion Gap 9.3 (7.0-16.0) 10/12/17 05:00 BUN 6 mg/dL (7-25) L 10/12/17 05:00 Creatinine 1.0 mg/dL (0.7-1.3) 10/12/17 05:00 Est GFR ( Amer) TNP 10/12/17 05:00 Est GFR (Non-Af Amer) TNP 10/12/17 05:00 BUN/Creatinine Ratio 6.0 10/12/17 05:00 Glucose 135 mg/dL (70-105) H 10/12/17 05:00 POC Glucose 134 MG/DL (70 - 105) H 10/12/17 05:03 Whole Bld Lactic Acid 0.98 mmol/L (0.60-1.99) 10/08/17 18:03 Calcium 8.7 mg/dL (8.6-10.3) 10/12/17 05:00 Total Bilirubin 0.5 mg/dL (0.3-1.0) 10/12/17 05:00 Direct Bilirubin 0.11 mg/dL (0.0-0.2) 10/12/17 05:00 AST 13 U/L (13-39) 10/12/17 05:00 ALT 13 U/L (7-52) 10/12/17 05:00 Alkaline Phosphatase 49 U/L (34-104) 10/12/17 05:00 Creatine Kinase 28 U/L (30-223) L 10/08/17 15:50 Troponin I < 0.01 ng/mL (0.01-0.05) L 10/08/17 15:50 B-Natriuretic Peptide 63.7 pg/mL (5.0-100.0) 10/10/17 05:10 Total Protein 5.5 gm/dL (6.0-8.3) L 10/12/17 05:00 Albumin 3.0 gm/dL (4.2-5.5) L 10/12/17 05:00 Globulin 2.5 gm/dL 10/12/17 05:00 Albumin/Globulin Ratio 1.2 (1.0-1.8) 10/12/17 05:00 Urine Source CLEAN C 10/08/17 22:20 Urine Color YELLOW 10/08/17 22:20 Urine Clarity HAZY (CLEAR) 10/08/17 22:20 Urine pH 8.5 (4.6 - 8.0) 10/08/17 22:20 Ur Specific [place] 1.015 (1.005-1.030) 10/08/17 22:20 Urine Protein 30 mg/dL (NEGATIVE) H 10/08/17 22:20 Urine Glucose (UA) NEGATIVE mg/dL (NEGATIVE) 10/08/17 22:20 Urine Ketones NEGATIVE mg/dL (NEGATIVE) 10/08/17 22:20 Urine Blood TRACE (NEGATIVE) 10/08/17 22:20 Urine Nitrate POSITIVE (NEGATIVE) H 10/08/17 22:20 Urine Bilirubin NEGATIVE (NEGATIVE) 10/08/17 22:20 Urine Urobilinogen 0.2 E.U./dL (0.2 - 1.0) 10/08/17 22:20 Ur Leukocyte Esterase LARGE (NEGATIVE) H 10/08/17 22:20 Urine RBC 0-2 /hpf (0-5) H 10/08/17 22:20 Urine WBC 25-50 /hpf (0-5) H 10/08/17 22:20 Ur Epithelial Cells MODERATE /lpf (FEW) 10/08/17 22:20 Urine Bacteria MODERATE /hpf (NONE SEEN) H 10/08/17 22:20 Vancomycin Trough 6.8 ug/mL (10-20) L 10/11/17 14:57 - Physical Exam Vitals and I&O: Vital Signs Temp 98.4 F 10/12/17 11:11 Pulse 73 10/12/17 11:11 Resp 19 10/12/17 11:11 BP 123/60 10/12/17 11:11 Pulse Ox 97 10/12/17 11:11 Intake & Output 10/11/17 10/12/17 10/12/17 18:59 06:59 18:59 Intake Total 1627 175 3260 Output Total 750 Balance 311 358 8579 Weight (lbs) 137 lb 3.2 oz Intake: Intake, IV Amount 549 524 8965 Piperacillin Sodium/ 100 200 Tazobact 4.5 gm In Sodium Chloride 0.9% 100 ml @ 100 mls/hr IV Q8HR [facility] Rx #:[id number] Sodium Chloride 0.9% 1, 1000 000 ml @ 70 mls/hr IV . [id number] [facility] Rx#:[id number] Oral 1100 Output: Urine 750 Other: # Bowel Movements 2 Stool Characteristics Soft Formed Active Medications: Current Medications Acetaminophen (Tylenol) 650 mg PO Q4H PRN PRN Reason: Pain Or Fever above 101 Stop: 12/07/17 18:20 Acetaminophen/Hydrocodone Bitart ([place] 5mg/325mg) 1 tab PO Q4H PRN PRN Reason: Pain (Severe) Stop: 12/07/17 18:19 Al Hydrox/Mg Hydrox/Simethicone (Maalox) 30 ml PO Q6H PRN PRN Reason: Dyspepsia Stop: 12/07/17 18:19 Albuterol Sulfate (Albuterol 2.5mg/3ml Neb Ud) 2.5 mg HHN Q2HRT PRN PRN Reason: Shortness of Breath or Wheeze Stop: 12/07/17 18:19 Atorvastatin Calcium (Lipitor) 40 mg PO DAILY [facility] Stop: 12/08/17 08:59 Last Admin: 10/12/17 09:54 Dose: 40 mg Cyanocobalamin (Vitamin B12) 1,000 mcg PO DAILY [facility] Stop: 12/08/17 08:59 Last Admin: 10/12/17 09:54 Dose: 1,000 mcg Guaifenesin (Robitussin) 200 mg PO Q4HR PRN PRN Reason: Cough or Congestion Stop: 12/07/17 18:20 Heparin Sodium (Porcine) (Heparin) 5,000 units SUBQ Q12HR [facility] Stop: 12/07/17 20:59 Last Admin: 10/12/17 09:54 Dose: Not Given Piperacillin Sod/Tazobactam (Sod 4.5 gm/ Sodium Chloride) 100 mls @ 100 mls/hr IV Q8HR [facility] Stop: 12/07/17 20:59 Last Infusion: 10/12/17 05:45 Dose: Infused Sodium Chloride (Nacl 0.9%) 1,000 mls @ 70 mls/hr IV .[id number] [facility] Stop: 12/07/17 18:29 Last Admin: 10/12/17 13:17 Dose: 70 mls/hr Vancomycin HCl 1.5 gm/ Sodium (Chloride) 500 mls @ 250 mls/hr IV Q24H [facility] Stop: 12/11/17 11:59 Last Admin: 10/12/17 13:17 Dose: 250 mls/hr Insulin Aspart (Novolog) 0 units SUBQ 0600,1800 [facility] PRN Reason: Protocol Stop: 12/10/17 17:59 Last Admin: 10/12/17 05:45 Dose: Not Given Ipratropium [place] (Atrovent Neb 0.5mg/2.5ml) 0.5 mg HHN Q2HRT PRN PRN Reason: Shortness of Breath or Wheeze Stop: 12/07/17 18:19 Lactobacillus Rhamnosus (Culturelle 15b) 1 each PO DAILY [facility] Stop: 12/11/17 08:59 Last Admin: 10/12/17 09:54 Dose: 1 each Lisinopril (Zestril) 5 mg PO QAM [facility] Stop: 12/08/17 08:59 Last Admin: 10/12/17 09:54 Dose: 5 mg Metformin HCl (Glucophage) 500 mg PO BID [facility] Stop: 12/08/17 08:59 Last Admin: 10/12/17 09:54 Dose: 500 mg Miscellaneous (Vancomycin Iv Per Pharmacy) 1 ea MC PRN [facility] Stop: 12/07/17 18:29 Miscellaneous (Probiotic Screen) 1 ea PRN PRN PRN Reason: PROTOCOL Stop: 12/10/17 12:14 Mupirocin (Bactroban Oint) 1 appl NS BID [facility] Stop: 10/15/17 09:01 Last Admin: 10/12/17 09:55 Dose: 1 appl Ondansetron HCl (Zofran) 4 mg IV Q8H PRN PRN Reason: Nausea / Vomiting Stop: 12/07/17 18:20 Zolpidem Tartrate (Ambien) 10 mg PO HS PRN PRN Reason: Insomnia Stop: 12/07/17 18:19 General: alert HEENT: NC/AT, PERRLA Neck: Supple Lungs: CTAB Cardiovascular: RRR, Normal S1, Normal S2 Abdomen: soft, non-tender Extremities: excoriation Internal Medicine Assmt/Plan - Assessment Assessment: FACIAL CELLULITIS large mass right infraorbital area s/p biopsy ACUTE UTI LEUKOCYTOSIS LACTIC ACIDOSIS DM-2 HYPERCHOLESTEREMIA HTN - Plan Plan: awaiting for bed at [facility] for ENT continue ivabx follow up labs in am continue current plan of care
--- NOTE | 2017-10-12 14:44 | General Progress Note ---
Subjective - Review of Systems Service Date: 10/12/17 Objective - Results Result Diagrams: 10/12/17 05:00 10/12/17 05:00 Recent Labs: Laboratory Last Values WBC 7.8 Th/cmm (4.8-10.8) 10/12/17 05:00 RBC 4.15 Mil/cmm (3.80-5.80) 10/12/17 05:00 Hgb 10.3 gm/dL (12-16) L 10/12/17 05:00 Hct 30.9 % (41.0-60) L 10/12/17 05:00 MCV 74.4 fl (80-99) L 10/12/17 05:00 MCH 24.7 pg (27.0-31.0) L 10/12/17 05:00 MCHC Differential 33.2 pg (28.0-36.0) 10/12/17 05:00 RDW 17.8 % (11.5-20.0) 10/12/17 05:00 Plt Count 300 Th/cmm (150-400) 10/12/17 05:00 MPV 6.2 fl 10/12/17 05:00 Neutrophils % 73.4 % (40.0-80.0) 10/12/17 05:00 Lymphocytes % 10.1 % (20.0-50.0) L 10/12/17 05:00 Monocytes % 7.4 % (2.0-10.0) 10/12/17 05:00 Eosinophils % 8.5 % (0.0-5.0) H 10/12/17 05:00 Basophils % 0.6 % (0.0-2.0) 10/12/17 05:00 ESR 82 mm/hr (0-20) H 10/10/17 05:10 PT 11.4 SECONDS (9.5-11.5) 10/12/17 05:00 INR 1.09 (0.5-1.4) 10/12/17 05:00 PTT (Actin FS) 27.0 SECONDS (26.0-38.0) 10/12/17 05:00 Sodium 136 mEq/L (136-145) 10/12/17 05:00 Potassium 3.6 mEq/L (3.5-5.1) 10/12/17 05:00 Chloride 104 mEq/L (98-107) 10/12/17 05:00 Carbon Dioxide 26.3 mEq/L (21.0-31.0) 10/12/17 05:00 Anion Gap 9.3 (7.0-16.0) 10/12/17 05:00 BUN 6 mg/dL (7-25) L 10/12/17 05:00 Creatinine 1.0 mg/dL (0.7-1.3) 10/12/17 05:00 Est GFR ( Amer) TNP 10/12/17 05:00 Est GFR (Non-Af Amer) TNP 10/12/17 05:00 BUN/Creatinine Ratio 6.0 10/12/17 05:00 Glucose 135 mg/dL (70-105) H 10/12/17 05:00 POC Glucose 134 MG/DL (70 - 105) H 10/12/17 05:03 Whole Bld Lactic Acid 0.98 mmol/L (0.60-1.99) 10/08/17 18:03 Calcium 8.7 mg/dL (8.6-10.3) 10/12/17 05:00 Total Bilirubin 0.5 mg/dL (0.3-1.0) 10/12/17 05:00 Direct Bilirubin 0.11 mg/dL (0.0-0.2) 10/12/17 05:00 AST 13 U/L (13-39) 10/12/17 05:00 ALT 13 U/L (7-52) 10/12/17 05:00 Alkaline Phosphatase 49 U/L (34-104) 10/12/17 05:00 Creatine Kinase 28 U/L (30-223) L 10/08/17 15:50 Troponin I < 0.01 ng/mL (0.01-0.05) L 10/08/17 15:50 B-Natriuretic Peptide 63.7 pg/mL (5.0-100.0) 10/10/17 05:10 Total Protein 5.5 gm/dL (6.0-8.3) L 10/12/17 05:00 Albumin 3.0 gm/dL (4.2-5.5) L 10/12/17 05:00 Globulin 2.5 gm/dL 10/12/17 05:00 Albumin/Globulin Ratio 1.2 (1.0-1.8) 10/12/17 05:00 Urine Source CLEAN C 10/08/17 22:20 Urine Color YELLOW 10/08/17 22:20 Urine Clarity HAZY (CLEAR) 10/08/17 22:20 Urine pH 8.5 (4.6 - 8.0) 10/08/17 22:20 Ur Specific [place] 1.015 (1.005-1.030) 10/08/17 22:20 Urine Protein 30 mg/dL (NEGATIVE) H 10/08/17 22:20 Urine Glucose (UA) NEGATIVE mg/dL (NEGATIVE) 10/08/17 22:20 Urine Ketones NEGATIVE mg/dL (NEGATIVE) 10/08/17 22:20 Urine Blood TRACE (NEGATIVE) 10/08/17 22:20 Urine Nitrate POSITIVE (NEGATIVE) H 10/08/17 22:20 Urine Bilirubin NEGATIVE (NEGATIVE) 10/08/17 22:20 Urine Urobilinogen 0.2 E.U./dL (0.2 - 1.0) 10/08/17 22:20 Ur Leukocyte Esterase LARGE (NEGATIVE) H 10/08/17 22:20 Urine RBC 0-2 /hpf (0-5) H 10/08/17 22:20 Urine WBC 25-50 /hpf (0-5) H 10/08/17 22:20 Ur Epithelial Cells MODERATE /lpf (FEW) 10/08/17 22:20 Urine Bacteria MODERATE /hpf (NONE SEEN) H 10/08/17 22:20 Vancomycin Trough 6.8 ug/mL (10-20) L 10/11/17 14:57 - Physical Exam Vitals and I&O: Vital Signs Temp 98.4 F 10/12/17 11:11 Pulse 73 10/12/17 11:11 Resp 19 10/12/17 11:11 BP 123/60 10/12/17 11:11 Pulse Ox 97 10/12/17 11:11 Intake & Output 10/11/17 10/12/17 10/12/17 18:59 06:59 18:59 Intake Total 1336 530 4120 Output Total 750 Balance 577 411 4501 Weight (lbs) 62.233 kg Intake: Intake, IV Amount 664 278 7103 Piperacillin Sodium/ 100 200 Tazobact 4.5 gm In Sodium Chloride 0.9% 100 ml @ 100 mls/hr IV Q8HR [facility] Rx #:[id number] Sodium Chloride 0.9% 1, 1000 000 ml @ 70 mls/hr IV . [id number] [facility] Rx#:[id number] Oral 1100 Output: Urine 750 Other: # Bowel Movements 2 Stool Characteristics Soft Formed Active Medications: Current Medications Acetaminophen (Tylenol) 650 mg PO Q4H PRN PRN Reason: Pain Or Fever above 101 Stop: 12/07/17 18:20 Acetaminophen/Hydrocodone Bitart ([place] 5mg/325mg) 1 tab PO Q4H PRN PRN Reason: Pain (Severe) Stop: 12/07/17 18:19 Al Hydrox/Mg Hydrox/Simethicone (Maalox) 30 ml PO Q6H PRN PRN Reason: Dyspepsia Stop: 12/07/17 18:19 Albuterol Sulfate (Albuterol 2.5mg/3ml Neb Ud) 2.5 mg HHN Q2HRT PRN PRN Reason: Shortness of Breath or Wheeze Stop: 12/07/17 18:19 Atorvastatin Calcium (Lipitor) 40 mg PO DAILY [facility] Stop: 12/08/17 08:59 Last Admin: 10/12/17 09:54 Dose: 40 mg Cyanocobalamin (Vitamin B12) 1,000 mcg PO DAILY [facility] Stop: 12/08/17 08:59 Last Admin: 10/12/17 09:54 Dose: 1,000 mcg Guaifenesin (Robitussin) 200 mg PO Q4HR PRN PRN Reason: Cough or Congestion Stop: 12/07/17 18:20 Heparin Sodium (Porcine) (Heparin) 5,000 units SUBQ Q12HR [facility] Stop: 12/07/17 20:59 Last Admin: 10/12/17 09:54 Dose: Not Given Piperacillin Sod/Tazobactam (Sod 4.5 gm/ Sodium Chloride) 100 mls @ 100 mls/hr IV Q8HR [facility] Stop: 12/07/17 20:59 Last Infusion: 10/12/17 05:45 Dose: Infused Sodium Chloride (Nacl 0.9%) 1,000 mls @ 70 mls/hr IV .[id number] [facility] Stop: 12/07/17 18:29 Last Admin: 10/12/17 13:17 Dose: 70 mls/hr Vancomycin HCl 1.5 gm/ Sodium (Chloride) 500 mls @ 250 mls/hr IV Q24H [facility] Stop: 12/11/17 11:59 Last Admin: 10/12/17 13:17 Dose: 250 mls/hr Insulin Aspart (Novolog) 0 units SUBQ 0600,1800 LELA PRN Reason: Protocol Stop: 12/10/17 17:59 Last Admin: 10/12/17 05:45 Dose: Not Given Ipratropium [place] (Atrovent Neb 0.5mg/2.5ml) 0.5 mg HHN Q2HRT PRN PRN Reason: Shortness of Breath or Wheeze Stop: 12/07/17 18:19 Lactobacillus Rhamnosus (Culturelle 15b) 1 each PO DAILY [facility]A Stop: 12/11/17 08:59 Last Admin: 10/12/17 09:54 Dose: 1 each Lisinopril (Zestril) 5 mg PO QAM [facility]A Stop: 12/08/17 08:59 Last Admin: 10/12/17 09:54 Dose: 5 mg Metformin HCl (Glucophage) 500 mg PO BID [facility] Stop: 12/08/17 08:59 Last Admin: 10/12/17 09:54 Dose: 500 mg Miscellaneous (Vancomycin Iv Per Pharmacy) 1 ea MC PRN [facility] Stop: 12/07/17 18:29 Miscellaneous (Probiotic Screen) 1 ea MC PRN PRN PRN Reason: PROTOCOL Stop: 12/10/17 12:14 Mupirocin (Bactroban Oint) 1 appl NS BID [facility] Stop: 10/15/17 09:01 Last Admin: 10/12/17 09:55 Dose: 1 appl Ondansetron HCl (Zofran) 4 mg IV Q8H PRN PRN Reason: Nausea / Vomiting Stop: 12/07/17 18:20 Zolpidem Tartrate (Ambien) 10 mg PO HS PRN PRN Reason: Insomnia Stop: 12/07/17 18:19 HEENT: Other (prominent mass in right cheek) Neurological: Other (weakness and spasticity in both lower and left upper ext.) Assessment/Plan - Assessment Assessment: * 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 S/P BIOPSY OF RIGHT MAXILLARY MASS
[2017-10-13] MEDS: INSULIN ASPART, RECOMBINANT 100 UNITS/ML SUBQ SCH (06:07)
[2017-10-13 06:27] LABS: % LYMPHOCYTES 10.3 % (20.0-50.0); % NEUTROPHILS 72.7 % (40.0-80.0); EOSINOPHILE ABSOLUTE 0.7 Th/cmm (0.1-0.4); HEMATOCRIT 30.5 % (41.0-60); LYMPHOCYTE ABSOLUTE 0.8 Th/cmm (1.5-3.0); MEAN CELL VOLUME 74.9 fl (80-99); MEAN CORPUSCULAR HEMOGLOBIN 24.5 pg (27.0-31.0); MEAN CORPUSCULAR HGB CONC 32.7 pg (28.0-36.0); MEAN PLATELET VOLUME 6.1 fl; MONOCYTE ABSOLUTE 0.6 Th/cmm (0.3-1.0); NEUTROPHILE ABSOLUTE 5.3 Th/cmm (1.8-8.0); PLATELET COUNT 298 Th/cmm (150-400); RED BLOOD COUNT 4.06 Mil/cmm (3.80-5.80); RED CELL DISTRIBUTION WIDTH 17.6 % (11.5-20.0); WHITE BLOOD COUNT 7.4 Th/cmm (4.8-10.8)
[2017-10-13 06:53] LABS: ALB/GLOB RATIO 1.3 (1.0-1.8); ALBUMIN 2.9 gm/dL (4.2-5.5); ALKALINE PHOSPHATASE 54 U/L (34-104); ANION GAP 10.7 (7.0-16.0); BILIRUBIN,TOTAL 0.5 mg/dL (0.3-1.0); BUN - UREA NITROGEN 4 mg/dL (7-25); CALCIUM SERUM 8.4 mg/dL (8.6-10.3); CARBON DIOXIDE 24.7 mEq/L (21.0-31.0); CHLORIDE 105 mEq/L (98-107); CREATININE - SERUM 0.7 mg/dL (0.7-1.3); GLUCOSE 122 mg/dL (70-105); POTASSIUM SERUM 3.4 mEq/L (3.5-5.1); SGOT 13 U/L (13-39); SGPT/ALT 11 U/L (7-52); SODIUM SERUM 137 mEq/L (136-145); TOTAL PROTEIN,SERUM 5.2 gm/dL (6.0-8.3)
--- NOTE | 2017-10-13 09:07 | Diagnostic Imaging Report ---
Exam: CT guided biopsy right infraorbital soft tissue mass. After obtaining informed consent the patient prepped and draped distal fashion. Utilizing CT guidance the right infraorbital mass was biopsied. Patient tolerated procedure well without complications. The specimen was sent to pathology. IMPRESSION: successful biopsy right intraorbital mass.
[2017-10-13] MEDS: Lactobacillus Rhamnosus GG 15 Billion CFU CAP.SPRINK PO SCH (09:20)
[2017-10-13] MEDS: Multivitamin w/ Minerals Tab PO SCH (09:20)
[2017-10-16 06:09] LABS: FERRITIN 268 ng/mL (30-400); IRON LC 37 ug/dL (38-169); TIBC (LC) 190 ug/dL (250-450); UIBC 153 ug/dL (111-343)
--- NOTE | 2017-11-29 18:42 | Discharge Summary ---
DATE OF DISCHARGE: 10/13/2017 DISCHARGE DIAGNOSES: Facial cellulitis, hypertension, type 2 diabetes, hypercholesterolemia, lactic acidosis, hyponatremia, leukocytosis, acute UTI. HISTORY OF PRESENT ILLNESS: An 87-year-old male who is from home with been having a 5-week history of facial swelling. The patient stated that about 3 days ago, he noticed that it started to get worse. He states that he was seeing his primary care physician. States it was bruised. The patient was given oral antibiotics, Keflex and Bactrim. Due to the patient's facial redness not resolving the patient was admitted to the med/surg unit. PHYSICAL EXAMINATION: GENERAL: Elderly male, awake, alert, in no apparent distress. VITAL SIGNS: Stable. HEENT: Head normocephalic and atraumatic. NECK: Supple. No mass. LUNGS: Clear bilaterally. ABDOMEN: Soft, nontender. HOSPITAL COURSE: During the hospital stay, the patient was admitted to the med/surg unit. The patient was kept on IV antibiotics of Zosyn and vancomycin. The patient's glucose is being monitored as well daily. The patient also had a consultation with Dr. Cross. Due to patient's facial cellulitis it was then decided that the patient had to be transferred to higher level of care for ENT and due to the patient's CT of the facial showing large mass on the right infraorbital area, this is the reason why Dr. Cross was also on the case as well. physics technician arranged patient to be transferred to a higher level of care. The patient was felt to be transferred to [facility] but due to no bed available, it was unable for patient to be transferred there. [facility] Doctors report given. CONDITION UPON DISCHARGE: Fair. DISPOSITION: [facility]. JOB# [id number]
== END 2017-10-13 12:55 | disposition short-term general hospital (02) | DRG 854 ==
LOC: ER 15:28 → MSI 17:45
PROVIDERS: ADMIT Internal Medicine; ATTEND Internal Medicine
PROC: 0NB Head and Facial Bones, Excision (ICD-10-PCS; principal; 2017-10-12)
DX: A41.9 Sepsis, unspecified organism (principal); L03.211 Cellulitis of face; E44.0 Moderate protein-calorie malnutrition; E11.9 Type 2 diabetes mellitus without complications; E87.1 Hypo-osmolality and hyponatremia; E78.5 Hyperlipidemia, unspecified; E78.00 Pure hypercholesterolemia, unspecified; D49.2 Neoplasm of unspecified behavior of bone, soft tissue, and skin; N39.0 Urinary tract infection, site not specified; H05.9 Unspecified disorder of orbit; I10 Essential (primary) hypertension; Z66 Do not resuscitate; Z83.3 Family history of diabetes mellitus; Z82.49 Family history of ischemic heart disease and other diseases of the circulatory system
CPT/HCPCS: 36415-UA; 70486-TC; 71045-TC; 77012-TC; 80048-TC; 80053-TC; 80076-TC; 80202-TC; 81001-TC; 82550-TC; 82728-90; 82948-90; 83540-90; 83550-90; 83605; 83880-TC; 84484-TC; 85025-TC; 85610-TC; 85652-TC; 85730-TC; 87086-90; 93005; 94760; J1644; J1815; J2543; J3370; J7030; J7040; Z7610